=== PATIENT | female | born 1995 | race Caucasian/White ===

== ENCOUNTER 2023-03-19 17:11 | Inpatient (IN) | payer SELFPAY ==
[2023-03-19] MEDS ORDERED: Misoprostol 25 MCG (1/4 of 100 MCG) Tab VAG PRN (17:25)
[2023-03-19] MEDS ORDERED: Water For Irrigation,Sterile 1,000 ML Container IRR PRN (17:25)
[2023-03-19] MEDS ORDERED: Sodium Chloride 0.9% 10 ML Syringe FLUSH PRN (17:25)
[2023-03-19] MEDS ORDERED: Sodium Chloride 0.9% 2.5 ML Syringe FLUSH PRN (17:25)
[2023-03-19] MEDS ORDERED: Terbutaline 1 MG/ML SDV SUBCUT PRN (17:25)
[2023-03-19] MEDS ORDERED: Sodium Chloride 0.9% 20 ML SDV IV PRN (17:25)
[2023-03-19] MEDS ORDERED: Methylergonovine 0.2 MG/1 ML Amp IM PRN (17:25)
[2023-03-19] MEDS ORDERED: Nalbuphine 10 MG/0.5 ML Syringe IVPUSH PRN (17:25)
[2023-03-19] MEDS ORDERED: Misoprostol 200 MCG Tab PO PRN (17:25)
[2023-03-19] MEDS ORDERED: Lidocaine 1% 50 ML MDV INJECT PRN (17:25)
[2023-03-19] MEDS ORDERED: Tranexamic Acid IN NACL,ISO-OS 1,000 MG in Premix Bag 1 BAG IV PRN ×2 (17:25)
[2023-03-19] MEDS ORDERED: Carboprost Tromethamine 250 MCG/1 mL Vial IM PRN (17:25)
[2023-03-19] MEDS ORDERED: Oxytocin/0.9 % Sodium Chloride 30 UNIT/500 ML BAG IV SCH ×2 (17:30)
[2023-03-19 18:17] LABS: HEMATOCRIT 35.8 % (37.0-47.0); HEMOGLOBIN 12.1 g/dL (12.0-16.0); MEAN CORPUSCULAR HEMOGLOBIN 30.8 pg (28.0-32.0); MEAN CORPUSCULAR HGB CONC 33.8 g/dL (32.0-36.0); MEAN CORPUSCULAR VOLUME 91.1 fL (83.0-99.0); MEAN PLATELET VOLUME 9.8 fL (9.4-12.3); PLATELET COUNT,PLT 336 K/uL (150-400); RED BLOOD CELL COUNT 3.93 M/uL (4.10-5.30)
[2023-03-19] MEDS ORDERED: Doxylamine Succinate 25 MG Tab PO PRN (19:23)
[2023-03-20] MEDS: Lactated Ringers 1,000 ML IV SCH ×4 (00:04→19:41)
[2023-03-20] MEDS ORDERED: Escitalopram 10 MG Tab PO SCH (09:00)
[2023-03-20] MEDS ORDERED: Iron Polysaccharides Complex 150 MG Cap PO SCH (09:00)
[2023-03-20] MEDS ORDERED: Phenylephrine HCl 0.5 MG/5 ML AMP ONE (10:17)
[2023-03-20] MEDS ORDERED: Bupivacaine 0.5% 10 ML SDV ONE (10:18)
[2023-03-20] MEDS ORDERED: Ropivacaine HCl/PF 200 ML ONE (10:18)
[2023-03-20] MEDS: Calcium Carbonate/Vitamin D3 1500 MG-400 Units Tab PO SCH (10:35)
[2023-03-20] MEDS: Ascorbic Acid 500 MG Tab PO SCH (10:35)
[2023-03-20] MEDS ORDERED: ePHEDrine 50 MG/ML SDV IVPUSH PRN ×2 (10:46)
[2023-03-20] MEDS ORDERED: Ropivacaine HCl/PF 400 MG in Premix Bag 1 BAG EPIDUR SCH (11:00)
[2023-03-20] MEDS: Phenylephrine HCl 0.5 MG/5 ML AMP IVPUSH PRN ×2 (12:28→19:38)
[2023-03-20] MEDS: Ondansetron 4 MG/2 ML SDV IVPUSH PRN ×2 (13:03→22:51)
[2023-03-21] MEDS ORDERED: Citric Acid/Sodium Citrate Solution 30 ML Cup PO ONE (00:29)
[2023-03-21] MEDS ORDERED: ceFAZolin 2 GM in Sodium Chloride 0.9% 50 ML IV ONE (00:29)
[2023-03-21] MEDS ORDERED: Azithromycin 500 MG in Sodium Chloride 0.9% 250 ML IV ONE (00:29)
[2023-03-21] MEDS ORDERED: Oxytocin 10 Units/1 ML SDV ONE (00:33)
[2023-03-21] MEDS ORDERED: Morphine PF 10 MG/10 ML SDV ONE (00:33)
[2023-03-21] MEDS ORDERED: Ketorolac 30 MG/ML SDV ONE (00:33)
[2023-03-21] MEDS ORDERED: ceFAZolin 1 GM Vial ONE (00:33)
[2023-03-21] MEDS ORDERED: fentaNYL 100 MCG/2 ML SDV ONE (00:33)
[2023-03-21] MEDS ORDERED: Ropivacaine 0.5% 5 MG/ML 30 ML SDV ONE (00:33)
[2023-03-21] MEDS ORDERED: ePHEDrine 50 MG/ML SDV ONE (00:33)
[2023-03-21] MEDS ORDERED: Bupivacaine 0.25% 30 ML SDV ONE (00:33)
[2023-03-21] MEDS ORDERED: Ondansetron 4 MG/2 ML SDV ONE (00:33)
[2023-03-21] MEDS ORDERED: Lidocaine 2% 5 ML SDV ONE (00:55)
[2023-03-21] MEDS ORDERED: Azithromycin 500 MG Vial ONE (00:56)
[2023-03-21] MEDS ORDERED: Dexamethasone 4 MG/ML 5 ML MDV ONE (01:34)
[2023-03-21] MEDS ORDERED: Ketorolac 30 MG/ML SDV IVPUSH SCH (01:45)
[2023-03-21] MEDS ORDERED: Lanolin 100% Cream 7 GM Tube TOP PRN (02:08)
[2023-03-21] MEDS ORDERED: Oxytocin 10 Units/1 ML SDV IM PRN (02:08)
[2023-03-21] MEDS ORDERED: Bisacodyl 10 MG Supp RECTAL PRN (02:08)
[2023-03-21] MEDS ORDERED: Methylergonovine 0.2 MG/1 ML Amp IM PRN (02:08)
[2023-03-21] MEDS ORDERED: Misoprostol 200 MCG Tab RECTAL PRN (02:08)
[2023-03-21] MEDS ORDERED: diphenhydrAMINE 50 MG/ML SDV IVPUSH PRN ×2 (02:08→02:21)
[2023-03-21] MEDS ORDERED: Acetaminophen/oxyCODONE 325-5 MG Tab PO PRN ×3 (02:08→02:21)
[2023-03-21] MEDS ORDERED: Ondansetron 4 MG/2 ML SDV IVPUSH PRN ×3 (02:08→02:21)
[2023-03-21] MEDS ORDERED: Lactated Ringers 1,000 ML IV SCH (02:15)
[2023-03-21 02:17] LABS: PH,UMBILICAL ARTERIAL 7.193 (7.18-7.38); PH,UMBILICAL VENOUS 7.191 (7.25-7.45)
[2023-03-21] MEDS ORDERED: Albuterol 0.083% 2.5 MG/3 ML Neb Soln NEB PRN (02:21)
[2023-03-21] MEDS ORDERED: fentaNYL 100 MCG/2 ML SDV IVPUSH PRN (02:21)
[2023-03-21] MEDS ORDERED: droPERidol 5 MG/2 ML SDV IVPUSH PRN (02:21)
[2023-03-21] MEDS ORDERED: ePHEDrine 50 MG/ML SDV IVPUSH PRN (02:21)
[2023-03-21] MEDS ORDERED: Naloxone 0.4 MG/ML SDV IVPUSH PRN (02:21)
[2023-03-21] MEDS ORDERED: Morphine 2 MG/ML SYRINGE IVPUSH PRN (02:21)
[2023-03-21] MEDS ORDERED: Metoclopramide 10 MG/2 ML SDV IVPUSH PRN (02:21)
[2023-03-21] MEDS ORDERED: fentaNYL 50 MCG/ML SDV IVPUSH PRN (02:21)
[2023-03-21] MEDS ORDERED: HYDROmorphone 1 MG/ML Syringe IVPUSH PRN (02:21)
[2023-03-21] MEDS ORDERED: Witch Hazel Medicated Pads 40/Jar TOP PRN (03:08)
[2023-03-21] MEDS ORDERED: Benzocaine/Menthol 20%-0.5% Spray 78 GM Cannister TOP PRN (03:09)
[2023-03-21] MEDS: Simethicone 80 MG Tab.Chew PO SCH ×3 (08:21→19:16)
[2023-03-21] MEDS: Ascorbic Acid 500 MG Tab PO SCH (08:51)
[2023-03-21] MEDS: Ketorolac 30 MG/ML SDV IVPUSH SCH ×3 (08:55→20:15)
[2023-03-21] MEDS: Docusate Sodium 100 MG Cap PO SCH ×2 (09:01→21:00)
[2023-03-21] MEDS: Calcium Carbonate/Vitamin D3 1500 MG-400 Units Tab PO SCH (09:03)
[2023-03-21 16:14] LABS: HEMATOCRIT 28.9 % (37.0-47.0); HEMOGLOBIN 9.6 g/dL (12.0-16.0)
[2023-03-22] MEDS: Simethicone 80 MG Tab.Chew PO SCH ×2 (00:45→11:55)
[2023-03-22] MEDS: Ketorolac 30 MG/ML SDV IVPUSH SCH (01:58)
[2023-03-22] MEDS ORDERED: Ibuprofen 800 MG Tab PO PRN (08:00)
== END 2023-03-22 15:30 | disposition home or self-care (01) | DRG 788 ==
LOC: MW.OBCHECK 17:11 → MW.OB 17:25 → OBSVTOIN 03-21 01:08 → MW.OB 03-21 06:37
PROVIDERS: ADMIT Obstetrics & Gynecology; ATTEND Obstetrics & Gynecology
PROC: 10H07YZ Insertion of Other Device into Products of Conception, Via Natural or Artificial Opening (ICD-10-PCS; 2023-03-21)
PROC: 3E033VJ Introduction of Other Hormone into Peripheral Vein, Percutaneous Approach (ICD-10-PCS; 2023-03-21)
PROC: 3E0R3BZ Introduction of Anesthetic Agent into Spinal Canal, Percutaneous Approach (ICD-10-PCS; 2023-03-21)
PROC: 00HU33Z Insertion of Infusion Device into Spinal Canal, Percutaneous Approach (ICD-10-PCS; 2023-03-21)
PROC: 3E0P7VZ Introduction of Hormone into Female Reproductive, Via Natural or Artificial Opening (ICD-10-PCS; 2023-03-21)
PROC: 10907ZC Drainage of Amniotic Fluid, Therapeutic from Products of Conception, Via Natural or Artificial Opening (ICD-10-PCS; 2023-03-21)
PROC: 10D00Z1 Extraction of Products of Conception, Low, Open Approach (ICD-10-PCS; principal; 2023-03-21 00:48)
DX: O32.4XX0 Maternal care for high head at term, not applicable or unspecified (principal); Z37.0 Single live birth; O76 Abnormality in fetal heart rate and rhythm complicating labor and delivery; O77.0 Labor and delivery complicated by meconium in amniotic fluid; Z3A.39 39 weeks gestation of pregnancy
CPT/HCPCS: 01967; 01968; 36415; 51702; 59025; 64488; 82803; 85014; 85018; 85027; 86592; 86850; 86900; 86901; A9270-GY; J0456; J0665; J0690; J1100; J1170; J1885; J2274; J2371; J2405; J2590; J2795; J3010; J3105; J3490; J7120

== ENCOUNTER 2025-01-05 01:49 | Emergency (ER) | payer BC ==
[2025-01-05] MEDS: Amoxicillin/Clavulanate K 875-125 MG Tab PO ONE (01:50)
[2025-01-05] MEDS: oxyCODONE ER 10 MG TAB.ER PO ONE (02:01)
== END 2025-01-05 02:20 | disposition home or self-care (01) ==
LOC: MW.ED 01:49
DX: O99.519 Diseases of the respiratory system complicating pregnancy, unspecified trimester (principal); J01.00 Acute maxillary sinusitis, unspecified; Z3A.00 Weeks of gestation of pregnancy not specified
CPT/HCPCS: 99283; A9270

== ENCOUNTER 2025-01-13 12:25 | Emergency (ER) | payer BC ==
[2025-01-13] MEDS ORDERED: Sodium Chloride 0.9% 2.5 ML Syringe FLUSH PRN (12:28)
[2025-01-13] MEDS ORDERED: Sodium Chloride 0.9% 10 ML Syringe FLUSH PRN (12:28)
[2025-01-13 12:45] LABS: BASOPHILS ABSOLUTE AUTO 0.02 K/uL (0.00-0.20); BASOPHILS PERCENT AUTO 0.2 % (0.0-1.0); EOSINOPHILS ABSOLUTE AUTO 0.01 K/uL (0.00-0.45); EOSINOPHILS PERCENT AUTO 0.1 % (0.0-6.0); IMMATURE GRAN ABSOLUTE AUTO 0.02 K/uL (0.00-0.05); IMMATURE GRAN PERCENT AUTO 0.2 % (0.0-0.4); LYMPHOCYTES ABSOLUTE AUTO 0.73 K/uL (1.00-4.80); LYMPHOCYTES PERCENT AUTO 6.9 % (24.0-44.0); MEAN PLATELET VOLUME 8.4 fL (9.4-12.3); MONOCYTES ABSOLUTE AUTO 0.13 K/uL (0.00-0.80); MONOCYTES PERCENT AUTO 1.2 % (0.0-8.0); NEUTROPHILS ABSOLUTE AUTO 9.62 K/uL (1.80-7.70); NEUTROPHILS PERCENT AUTO 91.4 % (41.0-71.0); NRBC ABSOLUTE 0.00 K/uL (0.00-0.02); NRBC PERCENT 0.0 /100WBC (0.0-0.2); PLATELET COUNT,PLT 378 K/uL (150-400); RED BLOOD CELL COUNT 3.73 M/uL (4.10-5.30); WHITE BLOOD CELL COUNT,WBC 10.53 K/uL (3.9-11.3)
[2025-01-13 13:28] LABS: IRON,FE 48.0 ug/dL (50-175); PERCENT FE SATURATION 15.53 % (20-55)
[2025-01-13 13:39] LABS: A/G RATIO 0.7 (0.9-1.6); ALANINE AMINOTRANSFERASE,ALT 21.0 IU/L (14-63); ASPARTATE AMNIOTRANSFERASE,AST 16.0 IU/L (15-37); BILIRUBIN TOTAL 0.6 mg/dL (0.2-1.0); BLOOD UREA NITROGEN,BUN 9.0 mg/dL (7.0-18.0); CARBON DIOXIDE,CO2 22.1 mmol/L (21.0-32.0); CHLORIDE,CL 102.0 mmol/L (98-107); CREATININE 0.5 mg/dL (0.6-1.0); EST CRCL DRUG DOSING (CG) 117.1 mL/min; GLUCOSE RANDOM 95.0 mg/dL (74-106); POTASSIUM,K 3.7 mmol/L (3.5-5.1); PROTEIN TOTAL,TP 7.4 g/dL (6.4-8.2); SODIUM,NA 135.0 mmol/L (136-145)
[2025-01-13 13:42] LABS: ESTIMATED GFR 129.0 mL/min (>60)
[2025-01-13] MEDS: Ondansetron 4 MG/2 ML SDV IVPUSH ONE (14:05)
[2025-01-13] MEDS: diphenhydrAMINE 50 MG/ML SDV IVPUSH ONE (15:19)
[2025-01-13 16:49] LABS: APPEARANCE,URINE CLEAR; GLUCOSE,URINE NEGATIVE (NEGATIVE); OCCULT BLOOD,URINE NEGATIVE (NEGATIVE)
[2025-01-13 16:58] LABS: AMPHETAMINES SCREEN, URINE NEGATIVE (CUTOFF=500); BUPRENORPHINE SCREEN,URINE NEGATIVE (CUTOFF=10); METHADONE SCREEN, URINE NEGATIVE (CUTOFF=200); METHAMPHETAMINES SCREEN, URINE NEGATIVE (CUTOFF=500); OXYCODONE SCREEN,URINE NEGATIVE (CUT0FF=100); PCP SCREEN,URINE NEGATIVE (CUTOFF=25); THC SCREEN,URINE 20 NG/ML NEGATIVE (CUTOFF=50)
== END 2025-01-13 17:30 | disposition home or self-care (01) ==
LOC: MW.ED 12:25
DX: O99.612 Diseases of the digestive system complicating pregnancy, second trimester (principal); A08.4 Viral intestinal infection, unspecified; O21.9 Vomiting of pregnancy, unspecified; O99.012 Anemia complicating pregnancy, second trimester; D64.9 Anemia, unspecified; O99.282 Endocrine, nutritional and metabolic diseases complicating pregnancy, second trimester; E86.0 Dehydration; Z79.899 Other long term (current) drug therapy; Z79.82 Long term (current) use of aspirin; Z3A.16 16 weeks gestation of pregnancy
CPT/HCPCS: 36415; 80053; 80305; 81003; 83550; 83605; 83690; 83735; 84702; 85025; 87086; 87428; 96361; 96374; 96375; 99284; J1200; J2405; J7030